=== PATIENT | female | born 1995 | race Caucasian/White ===

== ENCOUNTER 2019-12-14 20:49 | Emergency (ER) | payer SELFPAY ==
[~2019-12-14] VITALS: Ht 162.6 cm; Wt 100.1 kg
[2019-12-14] MEDS ORDERED: FLUORESCEIN OPHTH 1 MG STRIP OD ONE (22:15)
[2019-12-14] MEDS ORDERED: TETRACAINE 0.5% OPHTH SOLN 4ML OD ONE (22:15)
--- NOTE | 2019-12-14 22:47 | REPVR ---
PROCEDURE INFORMATION: Exam: CT Head Without Contrast Exam date and time: 12/14/2019 10:31 PM Age: 24 years old Clinical indication: Patient HX: Right eye pain/headache TECHNIQUE: Imaging protocol: Computed tomography of the head without contrast. Radiation optimization: All CT scans at this facility use at least one of these dose optimization techniques: automated exposure control; mA and/or kV adjustment per patient size (includes targeted exams where dose is matched to clinical indication); or iterative reconstruction. COMPARISON: No relevant prior studies available. FINDINGS: Brain: Normal. No hemorrhage. Unremarkable white matter. No mass effect. Ventricles: Normal. No ventriculomegaly. Bones/joints: Unremarkable. No acute fracture. Sinuses: Visualized sinuses are unremarkable. No fluid levels. Mastoid air cells: Visualized mastoid air cells are well aerated. Soft tissues: Unremarkable. IMPRESSION: No acute intracranial abnormality. Electronically signed by: Cayden Berry On 12/14/2019 22:47:03 PM
[2019-12-15 00:02] VITALS: BP 133/80
== END 2019-12-15 00:04 | disposition home or self-care (01) ==
LOC: M ED 20:49
DX: H40.051 Ocular hypertension, right eye (principal); H57.11 Ocular pain, right eye